=== PATIENT | female | born 1995 | race African-American/Black ===

== ENCOUNTER 2017-10-07 17:42 | Emergency (ER) | payer MEDICAID, OTHER ==
[~2017-10-07] VITALS: Ht 149.9 cm; Wt 52.2 kg
[2017-10-07 17:54] VITALS: BP 108/74
[2017-10-07] MEDS ORDERED: IBUPROFEN600 MG ORAL (18:17)
[2017-10-07] MEDS ORDERED: PROMETHAZINE-D118 ML ORAL (18:17)
[2017-10-07] MEDS ORDERED: PROAIR HFA8.5 GM INH (18:17)
[2017-10-07] MEDS ORDERED: ADVAIR 250-501 EACH INH (18:17)
[2017-10-07 18:28] VITALS: BP 108/74
--- NOTE | 2017-10-07 21:20 | Emergency Room Report ---
History of Present Illness General Chief Complaint: General Complaint Source: Patient Present Illness HPI The patient is a 22-year-old female with a history of asthma presenting for 3 days of subjective fever, headache, sore throat, cough. She [place]. She denies any recent travel. She has albuterol at home which helped somewhat. She has not taken any other medications. Pain is an 8/10 dull ache primarily to the back of her throat. Worse with swallowing and cough. She did not have a flu shot this year She denies other symptoms including SOB, rash, dizziness, blurred vision, abd pain, diarrhea Allergies: Coded Allergies: No Known Allergies (Unverified , 10/07/17) Patient History Past Medical History: see triage record Pertinent Family History: none Last Menstrual Period: 09/29/16 Now: No Reviewed Nursing Documentation: PMH: Agreed, PSxH: Agreed Nursing Documentation-PMH Past Medical History: No History, Except For Hx Asthma: Yes Review of Systems All Other Systems: negative except mentioned in HPI Physical Exam Vital Signs Date Time Temp Pulse Resp B/P (MAP) Pulse Ox O2 Delivery O2 Flow Rate FiO2 10/07/17 17:54 99.0 100 20 108/74 100 Room Air Sp02 EP Interpretation: reviewed, normal General Appearance: no apparent distress, alert, GCS 15, non-toxic Head: normocephalic, atraumatic Eyes: bilateral eye normal inspection, bilateral eye PERRL ENT: no angioedema, normal voice, uvula midline, tonsillar swelling, pharyngeal erythema Neck: full range of motion, supple/symm/no masses Respiratory: chest non-tender, no retraction, no accessory muscle use, decreased breath sounds, speaking full sentences Cardiovascular #1: regular rate, rhythm, no edema Musculoskeletal: back normal, gait/station normal, normal range of motion, non- tender Neurologic: alert, oriented x3, responsive, motor strength/tone normal, sensory intact, speech normal Psychiatric: judgement/insight normal, memory normal, mood/affect normal, no suicidal/homicidal ideation Skin: normal color, no rash, warm/dry, well hydrated Lymphatic: adenopathy Medical Decision Making PA Attestation Dr. Alvarenga is my supervising physician. Patient management was discussed with my supervising physician Diagnostic Impression: Primary Impression: Pharyngitis, acute Qualified Codes: J02.9 - Acute pharyngitis, unspecified Additional Impression: Asthma exacerbation Qualified Codes: J45.21 - Mild intermittent asthma with (acute) exacerbation ER Course The patient is a 22-year-old female with a history of asthma presenting for 3 days of subjective fever, headache, sore throat, cough. Differential diagnosis include but not limited to pharyngitis, influenza, sinusitis, AOM, bronchitis, PNA Physical exam: Vitals within normal limits. Afebrile. No apparent distress HEENT exam: There is bilateral tonsillar edema, erythema. Uvula midline. Moist mucous membranes. There is bilateral cervical lymphadenopathy. Lungs are clear to auscultation bilaterally but decreased breath sounds Skin is warm and dry. No rash The patient is given refill for her albuterol and she is provided Advair prescription as well. She will be treated for presumed viral upper respiratory infection with symptomatic treatment. ER precautions given Last Vital Signs Date Time Temp Pulse Resp B/P (MAP) Pulse Ox O2 Delivery O2 Flow Rate FiO2 10/07/17 18:28 99.0 20 108/74 100 Room Air 10/07/17 18:25 74 Status: improved Disposition: HOME, SELF-CARE Condition: Improved Scripts D-Methorphan Hb/Prometh Hcl* (PROMETHAZINE-DM SYRUP*) 118 Ml Syrup 5 ML ORAL Q6H Y for For Cough, #118 ML 0 Refills Prov: TERZIAN,SABINO P.A. 10/07/17 Fluticasone/Salmeterol (Advair 250-50 Diskus) 1 Each Blst.w.dev 1 PUFF INH EVERY 12 HOURS, #1 EA Prov: TERZIAN,SABINO P.A. 10/07/17 Albuterol Sulfate* (PROAIR HFA*) 8.5 Gm Hfa.aer.ad 2 PUFFS INH Q6H, #8.5 GM 0 Refills Prov: TERZIAN,SABINO P.A. 10/07/17 Ibuprofen* (MOTRIN*) 600 Mg Tablet 600 MG ORAL Q8H Y for For Pain, #30 TAB 0 Refills Prov: TERZIAN,SABINO P.A. 10/07/17 Referrals: [employer] [facility],REFERRIN (PCP) Patient Instructions: Pharyngitis, Form - Asthma Action Plan, Adult Additional Instructions: I discussed my findings with the patient. All questions and concerns have been answered. Treatment and medication compliance have been addressed. I advised the patient that they need to follow up with PMD in 3-5 days. Return to ED if pain remains or worsens, cough worsens or remains, you notice blood in your sputum, you notice wheezing, you experience a fever, or if needed for any reason. Patient verbalized understanding of discharge instructions. SABINO BHATTI Oct 07, 2017 21:20
== END 2017-10-07 18:21 | disposition home or self-care (01) ==
LOC: EMR 18:00
DX: J02.9 Acute pharyngitis, unspecified (principal); J45.901 Unspecified asthma with (acute) exacerbation
CPT/HCPCS: 99283

== ENCOUNTER 2018-08-09 22:49 | Emergency (ER) | payer SELFPAY ==
[~2018-08-09] VITALS: Ht 149.9 cm; Wt 52.2 kg
[~2018-08-09 22:49] MED LIST: ADVAIR 250-501 EACH INH; IBUPROFEN600 MG ORAL; PROAIR HFA8.5 GM INH; PROMETHAZINE-D118 ML ORAL
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
[2018-08-09 23:37] VITALS: BP 116/70
[2018-08-10] MEDS ORDERED: SILVADENE20 GM TP (00:51)
[2018-08-10] MEDS ORDERED: IBUPROFEN600 MG ORAL (00:51)
[2018-08-10] MEDS ORDERED: CYCLOBENZAPRINE10 MG ORAL (00:51)
[2018-08-10 01:24] VITALS: BP 107/53
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
--- NOTE | 2018-08-12 11:48 | Diagnostic Imaging Report ---
Indication: Right wrist pain Technique: Only 2 views are available; per technologist, lateral view not would not send to the PACS Comparison: none Findings: Exam is limited due to lack of lateral view. There is coalition of the lunate and the triquetrum. There appears to be coalition of the capitate and the third metacarpal and possibly of the hamate and the fourth metacarpal. No definite acute fractures. No dislocations. Impression: Limited exam, as described Multiple unusual bony coalitions, as described No definite acute bony trauma
== END 2018-08-10 00:15 | disposition home or self-care (01) ==
LOC: EMR 23:28
DX: S13.4XXA Sprain of ligaments of cervical spine, initial encounter (principal); S80.812A Abrasion, left lower leg, initial encounter; T24.212A Burn of second degree of left thigh, initial encounter; V43.52XA Car driver injured in collision with other type car in traffic accident, initial encounter; Y92.410 Unspecified street and highway as the place of occurrence of the external cause; M79.89 Other specified soft tissue disorders
CPT/HCPCS: 72050; 72110; 81025; 99284